=== PATIENT | male | born 1990 ===

== ENCOUNTER 2018-06-03 09:00 | Day surgery (SDC) | payer MEDICARE, MEDICAID ==
[~2018-06-03 09:00] MED LIST: Buffered Lidocaine 1% SYRIN* 1 ML/SYRINGE INTRADERM ONE; Dexamethasone IV* 4 MG/ML 1 ML (4 MG) IV SLOW PU ONE; Dexamethasone IV* 4 MG/ML 1 ML (4 MG) ONE; Famotidine IV* 10 MG/ML 2 ML (20 mg) IV ONE; Famotidine IV* 10 MG/ML 2 ML (20 mg) ONE; Lactated Ringers 1000 ML Bag* 1,000 ML IV SCH; ceFAZolin 2 GM in NS PREMIX(*) 2 GM/100 ML BAG IVPB ONE
[2018-06-03] MEDS ORDERED: ceFAZolin 2 GM in NS PREMIX(*) 2 GM/100 ML BAG IVPB ONE (09:11)
[2018-06-03] MEDS ORDERED: Propofol* 10 MG/ML 20 ML BTL ONE ×2 (09:55→10:45)
[2018-06-03] MEDS ORDERED: Bupivacaine 0.25% SDV* 30 ML ONE (10:00)
[2018-06-03] MEDS ORDERED: fentaNYL* 50 MCG/ML 2 ML VIAL (100 MCG VIAL) ONE (10:44)
[2018-06-03] MEDS ORDERED: Midazolam* 1 MG/ML 2 ML VIAL (2 MG) ONE (10:45)
[2018-06-03] MEDS ORDERED: Ketorolac INJ* 30 MG/ML 1 ML VIAL ONE (10:45)
[2018-06-03] MEDS ORDERED: Ondansetron INJ* 2 MG/ML VIAL ONE (10:45)
[2018-06-03] MEDS ORDERED: Lidocaine 2% PF * 5 ML VIAL ONE (10:45)
[2018-06-03 13:53] VITALS: BP 114/63
--- NOTE | 2018-06-03 15:57 | OP ---
DATE OF OPERATION: 06/03/18 [facility] DATE OF : 88 SURGEON: Irvin Dooley MD. [employer] OFFICER: None. ANESTHESIOLOGIST: Dr. Maloney. ANESTHESIA: General. PRE-OP DIAGNOSES: 1. Right median nerve compression at the wrist. 2. Right median nerve compression in the proximal forearm. POST-OP DIAGNOSES: 1. Right median nerve compression at the wrist. 2. Right median nerve compression in the proximal forearm. OPERATIVE PROCEDURE: 1. Right median knee nerve decompression in the proximal forearm. 2. Right carpal tunnel release. INDICATIONS: Jamal has the aforementioned nerve compression. 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 We talked about risks and benefits. He wanted to proceed with surgery. ESTIMATED BLOOD LOSS: 2 mL. COMPLICATIONS: None. FINDINGS: See above and below. DESCRIPTION OF PROCEDURE: Jamal was seen in the preoperative holding area. The correct site, side, and procedure were identified. We came back to the operating room and the arm was prepped and draped in the usual fashion and time- out was performed. The arm was exsanguinated with the Esmarch and the tourniquet was inflated to 250 mmHg. I went ahead and made a longitudinal incision in the typical location for an open carpal tunnel release. Dissection was carried down through the subcutaneous tissue and palmar fascia. The transverse carpal ligament was released just off the radial aspect of the hook of the hamate. The release was completed distally and then proximally. I released the subcutaneous tissue and fascia and retracted this out of the way and then remainder of the transverse carpal ligament and distal antebrachial fascia was released under direct visualization. I checked the decompression and everything was looking good. So, we irrigated out the wound and the skin was closed with 4-0 nylon suture. I then made a transverse incision over the lacertus fibrosus in the proximal forearm. This was a 2 to 3 cm incision. Dissection was carried down and the full- thickness flaps were raised off the fascia. Retractors were placed. The lacertus fibrosus was identified. We then isolated out the lacertus fibrosus and then I released this in its entirety with the tenotomy scissors. The release of the fascia was completed distally and proximally with the tenotomy scissors. Once I was satisfied with the decompression, I went ahead and irrigated out the wound. The skin was closed with 4-0 nylon suture. A 0.25% Marcaine was infiltrated all around the operative area. The wounds were dressed with Xeroform, 4x4s, sterile Webril, and Ayan bandages. He was then taken to the recovery room in stable condition. [id number]/[facility] #: [id number] ARMANDO
== END 2018-06-03 13:15 | disposition home or self-care (01) ==
LOC: OREAST 09:00
PROVIDERS: ATTEND Orthopaedic Surgery Hand Surgery
DX: G56.01 Carpal tunnel syndrome, right upper limb (principal); G56.11 Other lesions of median nerve, right upper limb; J45.909 Unspecified asthma, uncomplicated; Z72.0 Tobacco use; F32.9 Major depressive disorder, single episode, unspecified; R44.0 Auditory hallucinations
CPT/HCPCS: J0690; J1100; J1885; J2250; J2405; J2704; J3010